=== PATIENT | female | born 1995 | race Caucasian/White ===

== ENCOUNTER 2018-10-17 22:33 | Inpatient (IN) | payer MEDICAID ==
[~2018-10-17] VITALS: Ht 170.2 cm; Wt 61.7 kg
[2018-10-17] MEDS ORDERED: FAMOTIDINE 20MG/2ML VIAL IV STA (23:58)
[2018-10-17] MEDS ORDERED: ONDANSETRON HCL 4MG/2ML INJ IV STA (23:58)
[2018-10-17] MEDS ORDERED: MORPHINE SULFATE 4 MG/ML CPJ (NOT FOR IM USE) IV STA (23:58)
[2018-10-17] MEDS ORDERED: SODIUM CHLORIDE 0.9% 1,000 ML IV ONE (23:58)
[2018-10-18 00:34] LABS: BASOPHILS % 0.4 % (0.0-2.0); EOSINOPHILS % 2.3 % (0.0-5.0); HEMATOCRIT. 37.5 % (36.0-48.0); HEMOGLOBIN. 12.6 g/dL (12.0-16.0); MEAN CORPUSCULAR HEMOGLOBIN 28.6 pg (28.0-32.0); MEAN CORPUSCULAR VOLUME 84.9 fL (81.0-99.0); MEAN PLATELET VOLUME 8.6 fl (7.4-10.4); MONOCYTES % 9.8 % (2.0-8.0); NEUTROPHILS % 65.5 % (40.0-76.0); PLATELET 211 x1000/uL (130-400); RED BLOOD CELL COUNT 4.42 mill/uL (4.2-5.4); RED CELL DISTRIBUTION WIDTH 13.3 % (11.6-14.6)
[2018-10-18 00:38] LABS: CHLORIDE 110 mEq/L (98-107)
[2018-10-18 00:55] LABS: HCG SCREEN NEGATIVE
[2018-10-18 01:20] LABS: CLARITY URINE CLEAR (CLEAR); COLOR URINE YELLOW (YELLOW); KETONES URINE NEGATIVE (NEGATIVE); LEUKOCYTE ESTERASE URINE NEGATIVE (NEGATIVE); NITRITE URINE NEGATIVE (NEGATIVE); OCCULT BLOOD URINE NEGATIVE (NEGATIVE); PROTEIN URINE NEGATIVE (NEGATIVE); SPECIFIC GRAVITY URINE 1.024 (1.005-1.030)
[2018-10-18 08:00] VITALS: BP 99/73
[2018-10-18] MEDS ORDERED: IPRATROPIUM/ALBUTEROL 0.5-3(2.5)MG/3ML NEB INH PRN (10:30)
[2018-10-18] MEDS ORDERED: CLONIDINE 0.1MG TABLET PO PRN (10:30)
[2018-10-18] MEDS: MORPHINE SULFATE 4 MG/ML CPJ (NOT FOR IM USE) IV PRN (11:17)
[2018-10-18 12:00] VITALS: BP 111/71
[2018-10-18] MEDS: DEXT 5%/0.9% NACL 1,000 ML IV SCH ×2 (13:06→23:44)
[2018-10-18 20:00] VITALS: BP 110/56
[2018-10-19] VITALS: BP 111/72
[2018-10-19] MEDS: MORPHINE SULFATE 4 MG/ML CPJ (NOT FOR IM USE) IV PRN ×4 (00:32→20:04)
[2018-10-19 04:00] VITALS: BP 105/59
[2018-10-19 06:46] LABS: BASOPHILS % 0.4 % (0.0-2.0); EOSINOPHILS % 6.5 % (0.0-5.0); HEMATOCRIT. 35.8 % (36.0-48.0); HEMOGLOBIN. 12.4 g/dL (12.0-16.0); LYMPHOCYTES % 27.2 % (20.0-50.0); MEAN CORPUSCULAR HEMOGLOBIN 29.2 pg (28.0-32.0); MEAN CORPUSCULAR VOLUME 84.8 fL (81.0-99.0); MEAN PLATELET VOLUME 8.3 fl (7.4-10.4); MONOCYTES % 10.1 % (2.0-8.0); NEUTROPHILS % 55.8 % (40.0-76.0); PLATELET 184 x1000/uL (130-400); RED BLOOD CELL COUNT 4.23 mill/uL (4.2-5.4); RED CELL DISTRIBUTION WIDTH 13.1 % (11.6-14.6)
[2018-10-19 06:55] LABS: CHLORIDE 109 mEq/L (98-107)
[2018-10-19 08:00] VITALS: BP 92/64
[2018-10-19] MEDS ORDERED: POTASSIUM CHLORIDE 20MEQ TABLET SR PO SCH (10:00)
[2018-10-19 12:00] VITALS: BP 108/71
[2018-10-19 16:00] VITALS: BP 102/73
[2018-10-19] MEDS: DEXT 5%/0.9% NACL 1,000 ML IV SCH (16:53)
[2018-10-19] MEDS ORDERED: ACETAMINOPHEN 325MG TABLET PO NR (18:15)
[2018-10-19] MEDS ORDERED: ACETAMINOPHEN 650MG/20.3ML UDC PO PRN (19:00)
[2018-10-19 20:00] VITALS: BP 93/58
[2018-10-20] VITALS: BP 95/54
[2018-10-20] MEDS: ONDANSETRON HCL 4MG/2ML INJ IV PRN ×3 (00:37→18:12)
[2018-10-20] MEDS: DEXT 5%/0.9% NACL 1,000 ML IV SCH ×2 (00:37→13:15)
[2018-10-20 04:00] VITALS: BP 99/58
[2018-10-20] MEDS: MORPHINE SULFATE 4 MG/ML CPJ (NOT FOR IM USE) IV PRN ×5 (04:51→22:29)
[2018-10-20 06:32] LABS: BASOPHILS % 0.4 % (0.0-2.0); EOSINOPHILS % 8.2 % (0.0-5.0); HEMATOCRIT. 35.7 % (36.0-48.0); LYMPHOCYTES % 43.4 % (20.0-50.0); MEAN CORPUSCULAR HEMOGLOBIN 28.6 pg (28.0-32.0); MEAN CORPUSCULAR VOLUME 85.2 fL (81.0-99.0); MEAN PLATELET VOLUME 8.5 fl (7.4-10.4); MONOCYTES % 10.5 % (2.0-8.0); NEUTROPHILS % 37.5 % (40.0-76.0); PLATELET 177 x1000/uL (130-400); RED BLOOD CELL COUNT 4.19 mill/uL (4.2-5.4); RED CELL DISTRIBUTION WIDTH 13.1 % (11.6-14.6)
[2018-10-20 07:38] LABS: CHLORIDE 109 mEq/L (98-107)
[2018-10-20 08:00] VITALS: BP 86/54
[2018-10-20 12:00] VITALS: BP 95/63
[2018-10-20 16:00] VITALS: BP 96/68
[2018-10-20 20:00] VITALS: BP 117/70
[2018-10-20] MEDS: PIPERACILLIN/TAZ 3.375G PREMIX 50 ML IV SCH (20:28)
[2018-10-21] VITALS: BP 101/56
[2018-10-21] MEDS: DEXT 5%/0.9% NACL 1,000 ML IV SCH (01:00)
[2018-10-21 04:00] VITALS: BP 99/58
[2018-10-21] MEDS: PIPERACILLIN/TAZ 3.375G PREMIX 50 ML IV SCH ×3 (04:00→17:31)
[2018-10-21 07:29] LABS: BASOPHILS % 0.6 % (0.0-2.0); EOSINOPHILS % 6.7 % (0.0-5.0); HEMATOCRIT. 38.3 % (36.0-48.0); HEMOGLOBIN. 12.9 g/dL (12.0-16.0); LYMPHOCYTES % 36.2 % (20.0-50.0); MEAN CORPUSCULAR HEMOGLOBIN 28.8 pg (28.0-32.0); MEAN CORPUSCULAR VOLUME 85.9 fL (81.0-99.0); MEAN PLATELET VOLUME 8.6 fl (7.4-10.4); MONOCYTES % 13.1 % (2.0-8.0); NEUTROPHILS % 43.4 % (40.0-76.0); PLATELET 169 x1000/uL (130-400); RED BLOOD CELL COUNT 4.46 mill/uL (4.2-5.4); RED CELL DISTRIBUTION WIDTH 13.2 % (11.6-14.6)
[2018-10-21 07:46] LABS: CHLORIDE 110 mEq/L (98-107)
[2018-10-21 09:00] VITALS: BP 113/62
[2018-10-21] MEDS: MORPHINE SULFATE 4 MG/ML CPJ (NOT FOR IM USE) IV PRN (09:20)
[2018-10-21] MEDS ORDERED: SKIN ADHESIVE 0.7 GM EA TOP ONE (10:14)
[2018-10-21] MEDS ORDERED: BUPIVACAINE HCL 0.5% (5MG/ML) 50ML ONE (10:14)
[2018-10-21] MEDS ORDERED: ROCURONIUM BROMIDE 10MG/ML VIAL 5ML IV ONE (10:46)
[2018-10-21] MEDS ORDERED: PROPOFOL 200MG/20ML VIAL IV ONE (10:46)
[2018-10-21] MEDS ORDERED: FENTANYL CITRATE/PF 50MCG/ML 2ML VIAL ONE (10:46)
[2018-10-21] MEDS ORDERED: NEOSTIGMINE METHYLSULFATE 1MG/ML 10 ML VIAL ONE (10:46)
[2018-10-21] MEDS ORDERED: GLYCOPYRROLATE 0.2 MG/ML 2ML VIAL ONE (10:47)
[2018-10-21] MEDS ORDERED: MIDAZOLAM HCL 2 MG/2 ML VIAL ONE (10:47)
[2018-10-21] MEDS ORDERED: ONDANSETRON HCL 4MG/2ML INJ ONE (10:55)
[2018-10-21] MEDS ORDERED: DEXAMETHASONE 4MG/ML 1ML VIAL ONE (10:55)
[2018-10-21] MEDS ORDERED: MORPHINE SULFATE 2 MG/ML CPJ (NOT FOR IM USE) IV PRN (11:00)
[2018-10-21] MEDS ORDERED: MORPHINE SULFATE 4 MG/ML CPJ (NOT FOR IM USE) IV PRN ×2 (11:00)
[2018-10-21] MEDS ORDERED: HYDROCODONE/ACETAMINOPHEN 5/325MG TABLET PO PRN ×2 (11:00)
[2018-10-21] MEDS ORDERED: ONDANSETRON HCL 4MG/2ML INJ IV PRN (11:00)
[2018-10-21] MEDS ORDERED: HYDROMORPHONE HCL/PF 2MG/ML CPJ ONE (11:51)
[2018-10-21] MEDS ORDERED: DEXT 5%/0.45% NACL KCL 20MEQ/L 1,000 ML IV SCH (12:00)
[2018-10-21] MEDS: HYDROMORPHONE HCL/PF 2MG/ML CPJ IV PRN ×2 (12:09→13:15)
[2018-10-21] MEDS ORDERED: SODIUM CHLORIDE 0.9% INJ 3ML FLUSH IVF SCH (14:00)
[2018-10-21 15:24] VITALS: BP 101/60
[2018-10-21 19:00] VITALS: BP 101/60
[2018-10-21 20:00] VITALS: BP 116/77
== END 2018-10-21 20:35 | disposition home or self-care (01) | DRG 263 ==
LOC: ER 22:33 → ENRESERV 10-18 07:21 → 6EST 10-18 08:17
PROVIDERS: ADMIT Internal Medicine; ATTEND Internal Medicine
PROC: 0FT44ZZ Resection of Gallbladder, Percutaneous Endoscopic Approach (ICD-10-PCS; principal; 2018-10-21)
DX: K80.62 Calculus of gallbladder and bile duct with acute cholecystitis without obstruction (principal); E87.8 Other disorders of electrolyte and fluid balance, not elsewhere classified; K76.0 Fatty (change of) liver, not elsewhere classified; D72.821 Monocytosis (symptomatic); R73.9 Hyperglycemia, unspecified
CPT/HCPCS: 36415; 74181; 76705; 78227; 80048; 80061; 83605; 84703; 88304; 93005; 93970; 96374; 96375; 99285; A9537; J1100; J1170; J2250; J2270; J2405; J2543; J2704; J2710; J3010; J3490; J7030; J7042